=== PATIENT | female | born 1990 | race Caucasian/White ===

== ENCOUNTER 2024-06-29 10:36 | Emergency (ER) | payer BC, SELFPAY ==
[2024-06-29 10:38] VITALS: BP 135/80
--- NOTE | 2024-06-29 12:01 | ED.GENMED ---
History of Present Illness
<Rebecca Mcconnell PA-C - Last Filed: 06/29/24 14:58>
General
Chief Complaint: Abdominal Symptoms
Source: patient
Time Seen by Provider: 06/29/24 11:52
History of Present Illness
History of Present Illness:
34yoF with a history of cyclic vomiting syndrome, anxiety, and depression presenting for evaluation of vomiting. Symptoms began this morning. She has vomited about 5x thus far and has been unable to tolerate PO intake. She is under a lot of stress
and starts a new job next week. She believes the stress is what is causing her symptoms. She also reports diarrhea which is typical for her cyclic vomiting flares. She denies any fevers, chest pain, shortness of breath, abdominal pain. No sick
contacts, recent travel, or suspicious food intake. She typically improves with IV antiemetics and Ativan. She smokes marijuana about 2x weekly.
Past History
<Rebecca Mcconnell PA-C - Last Filed: 06/29/24 14:58>
Past History
ED Past Medical History: Asthma, Psychiatric (Anxiety, Depression. ) and Other (Cyclic vomiting syndrome, Kidney stones, Colitis, UTI, Substance abuse)
ED Past Surgical History: Appendectomy
Patient has exhibited threatening behavior?: No
PSI?: No
Social History
Tobacco: Non-smoker
Alcohol: None
Drug: Marijuana and Other
Personal: Single
Living: with family
Employment: Employed
Family History
Family History: Other (Noncontributory); Negative Sudden
Phy Exam
<Rebecca Mcconnell PA-C - Last Filed: 06/29/24 14:58>
General Physical Exam
General Presentation: well appearing and no apparent distress
General age: appears stated age
General Skin: warm and dry
General Habitus: normal
General Mental: alert
Cardiovascular Exam
Cardiovascular Exam: regular rate/rhythm, no edema and no murmur
Pulmonary Exam
Pulmonary Exam: lungs clear, no respiratory distress, no crackles and no wheezing
Gastrointestinal Exam
Gastrointestinal Exam: non tender, soft and non distended
Skin Exam
Skin Exam: normal color and warm/dry
Psychiatric Exam
Psychiatric Exam: anxious
Course
<Rebecca Mcconnell PA-C - Last Filed: 06/29/24 14:58>
Orders/Labs/Results
Orders:
Orders
06/29/24 12:01
0.9% Sodium Chloride 1000 ml [Nss] 1,000 ml IV BOLUS
Lorazepam [Ativan] 1 mg IV NOW STA
Metoclopramide [Reglan] 10 mg IV NOW STA
06/29/24 12:02
Test Result ONCE
06/29/24 12:16
Complete Blood Count/With Diff Urgent
Comprehensive Metabolic Panel Urgent
HCG, Serum Qualitative Screen Urgent
Lipase Urgent
Abnormal Lab Results
06/29/24
12:16
WBC 14.9 H 10^3/uL
(4.8-10.8)
MPV 10.5 H fL
(7.4-10.4)
Abs Immat Gran (auto) 0.2 H 10^3/uL
(0-0.05)
Absolute Neuts (auto) 12.6 H 10^3/uL
(1.4-6.5)
Immature Gran % 1.0 H %
(0-0.5)
Neutrophils % 85.1 H %
(42.2-75.2)
Lymphocytes % 10.8 L %
(20.5-51.1)
Glucose 118 H mg/dl
(70-99)
06/29/24 12:16
06/29/24 12:16
Vital Signs
Initial and Last Documented VS:
Initial Vital Signs
Temp Pulse Resp BP Pulse Ox
98.3 F 115 16 135/80 97
06/29/24 10:38 06/29/24 10:38 06/29/24 10:38 06/29/24 10:38 06/29/24 10:38
Last Documented Vital Signs
Temp Pulse Resp BP Pulse Ox
98.3 F 115 16 135/80 97
06/29/24 10:38 06/29/24 10:38 06/29/24 10:38 06/29/24 10:38 06/29/24 10:38
<Melba Miller MD - Last Filed: 06/29/24 13:01>
Orders/Labs/Results
Orders:
Orders
06/29/24 12:01
0.9% Sodium Chloride 1000 ml [Nss] 1,000 ml IV BOLUS
Lorazepam [Ativan] 1 mg IV NOW STA
Metoclopramide [Reglan] 10 mg IV NOW STA
06/29/24 12:02
Test Result ONCE
06/29/24 12:16
Complete Blood Count/With Diff Urgent
Comprehensive Metabolic Panel Urgent
HCG, Serum Qualitative Screen Urgent
Lipase Urgent
Abnormal Lab Results
06/29/24
12:16
WBC 14.9 H 10^3/uL
(4.8-10.8)
MPV 10.5 H fL
(7.4-10.4)
Abs Immat Gran (auto) 0.2 H 10^3/uL
(0-0.05)
Absolute Neuts (auto) 12.6 H 10^3/uL
(1.4-6.5)
Immature Gran % 1.0 H %
(0-0.5)
Neutrophils % 85.1 H %
(42.2-75.2)
Lymphocytes % 10.8 L %
(20.5-51.1)
Glucose 118 H mg/dl
(70-99)
06/29/24 12:16
06/29/24 12:16
Vital Signs
Initial and Last Documented VS:
Initial Vital Signs
Temp Pulse Resp BP Pulse Ox
98.3 F 115 16 135/80 97
06/29/24 10:38 06/29/24 10:38 06/29/24 10:38 06/29/24 10:38 06/29/24 10:38
Last Documented Vital Signs
Temp Pulse Resp BP Pulse Ox
98.3 F 115 16 135/80 97
06/29/24 10:38 06/29/24 10:38 06/29/24 10:38 06/29/24 10:38 06/29/24 10:38
<Rebecca Mcconnell PA-C - Last Filed: 06/29/24 14:58>
MDM/Problems Addressed
Differential Diagnosis Includes:
34yoF here with vomiting that began this morning. Hx of cyclic vomiting syndrome and symptoms are identical to prior episodes. No abdominal pain. HR 115, remainder of vitals stable. She is well appearing in no distress. Abdominal exam is benign.
Differential diagnosis includes but is not limited to: cyclic vomiting flare, gastroenteritis, dehydration, electrolyte abnormality
Initial ED plan: Check abdominal labs and HCG. Defer abdominal imaging given benign exam. IV Reglan, Ativan, and fluid bolus for symptoms.
<Rebecca Mcconnell PA-C - Last Filed: 06/29/24 14:58>
*Critical Care Note
Total Time (30-74mins, 75-104mins- exclusive of procedures): Not Applicable
<Rebecca Mcconnell PA-C - Last Filed: 06/29/24 14:58>
Update Note
Update Note:
Labs reveal a leukocytosis with a WBC of 14.9 which may be reactive 2/2 vomiting. This also appears stable from prior labs. Electrolytes and renal function normal. HCG negative. Patient feeling significantly improved on reassessment and was able to
tolerate PO challenge. She is requesting discharge. Script provided for Reglan and supportive care discussed. Advised close f/u with PCP and ED return precautions discussed. She was discharged in stable condition.
ED Attending Note
<Rebecca Mcconnell PA-C - Last Filed: 06/29/24 14:58>
-
Portions of this chart may have been created with voice recognition software.� Occasional wrong word or��sound alike� substitutions may have occurred due to the inherent limitations of voice recognition software.
<Melba Miller MD - Last Filed: 06/29/24 13:01>
ED Attending Note
Patient seen and examined by attending physician: Yes
I performed the substantive portion of visit, reviewed & personally made and approve the management plan that is documented in note by myself or ROSA.: Yes
ED Attending Note:
34 yr old wtih high stress this week, states this is cause of her repeated vomiting this am, no abd pain, mm dry, abd soft/nt.
Discharge Plan
Departure
Patient Disposition: Home (Routine Discharge)
Date of Disposition: 06/29/24
Time of Disposition: 14:24
Patient with high blood pressure during this ER visit?: No
Discharge Problem:
Nausea and vomiting
Instructions: Acute Nausea and Vomiting
Prescriptions:
New
metoclopramide HCl 5 mg tablet
5 mg PO Q6H PRN (Reason: nausea and vomiting) Qty: 20 0RF
No Action
lamotrigine 200 mg tablet
600 mg PO HS
quetiapine 200 mg tablet
800 mg PO HS
norgestimate-ethinyl estradiol 0.18/0.215/0.25 mg-35 mcg (28) tablet
1 tab PO DAILY
diphenhydramine HCl [Benadryl] 25 mg Capsule
25 mg PO HS PRN (Reason: sleep)
bismuth subsalicylate [Pepto-Bismol] 262 mg/15 mL Suspension
524 mg PO Q4HPRN PRN (Reason: stomach issuses)
lorazepam 1 mg tablet
1 mg PO HSPRN PRN (Reason: sleep/anxiety)
prochlorperazine maleate [Compazine] 10 mg tablet
10 mg PO Q8H PRN (Reason: nausea and vomiting) Qty: 10 0RF
Referrals:
Susana Castro MD [Family Provider] -
Activity Restrictions/Additional Instructions:
Take Reglan as needed for nausea. Drink plenty of fluids and eat a bland diet (rice, applesauce, toast).
Please follow-up with your family doctor. Return to the ER with any new or worsening symptoms.
Interventions
Interventions:
*Risk Screen - Suicide Last Done: 06/29/24 10:41
*General Assessment Last Done: 06/29/24 10:41
*Neglect/Abuse Screening Last Done: 06/29/24 10:41
ED- Fall Risk Assessment Last Done: 06/29/24 11:02
*ED COVID-19 Vaccine History Last Done: 06/29/24 11:02
KW-Ubatqm-Mqcagsibzt Assessment Last Done: 06/29/24 11:02
Discharge Date and Time
Print Language: LATVIAN
[2024-06-29 12:14] VITALS: BMI 34.6
[2024-06-29] MEDS: NSS 1000 IV (12:23)
[2024-06-29] MEDS: REGLAN 10 MG IV (12:23)
[2024-06-29] MEDS: ATIVAN 1 MG IV (12:24)
[2024-06-29 12:39] LABS: % Basophils 0.4 % (0-2); % Eosinophils 0.1 % (0-6); % Lymphocytes 10.8 % (20.5-51.1); % Monocytes 2.6 % (1.7-9.3); % Neutrophils 85.1 % (42.2-75.2); Absolute Basophils 0.1 10^3/uL (0-0.2); Absolute Immature Granulocytes 0.2 10^3/uL (0-0.05); Absolute Lymphocytes 1.6 10^3/uL (1.2-3.4); Absolute Monocytes 0.4 10^3/uL (0.1-0.6); Absolute Neutrophils 12.6 10^3/uL (1.4-6.5); Hemoglobin 13.3 g/dL (12.0-16.0); Mean Corpuscular Hgb 28.5 pg (27.0-31.0); Mean Corpuscular Volume 81.4 fL (81.0-99.0); Mean Platelet Volume 10.5 fL (7.4-10.4); Nucleated Red Blood Cells % 0 %; Platelet Count 295 10^3/uL (130-400); Red Blood Cell Count 4.67 10^6/uL (4.20-5.40); Red Cell Dist. Width 13.2 % (11.5-14.5); White Blood Cell Count 14.9 10^3/uL (4.8-10.8)
[2024-06-29 12:52] LABS: ALT (SGPT) 20 U/L (0-35); AST (SGOT) 21 U/L (14-36); Albumin 4.8 g/dl (3.5-5.0); Alkaline Phosphatase 120 U/L (38-126); Blood Urea Nitrogen 12 mg/dl (7-17); Calcium 10.1 mg/dl (8.4-10.2); Carbon Dioxide 23 mmol/L (22-30); Chloride 104 mmol/L (98-107); Estimated Creatinine Clearance > 125 ml/min; Glucose 118 mg/dl (70-99); Lipase 65 U/L (23-300); Potassium 4.2 mmol/L (3.5-5.1); Sodium 139 mmol/L (135-145); Total Bilirubin 0.3 mg/dl (0.2-1.3); Total Protein 7.3 g/dl (6.3-8.2); eGFR > 60.00
[2024-06-29 13:05] LABS: HCG, Serum Qualitative Screen Negative
[2024-06-29 14:59] VITALS: BP 128/86
== END 2024-06-29 15:00 | disposition home or self-care (01) ==
LOC: EMR 10:36
PROVIDERS: Physician Assistant; EMERGENCY PHYSICIAN Emergency Medicine; FAMILY PHYSICIAN Family Medicine
DX: R11.2 Nausea with vomiting, unspecified (principal); F41.8 Other specified anxiety disorders; J45.909 Unspecified asthma, uncomplicated; Z87.440 Personal history of urinary (tract) infections; Z87.442 Personal history of urinary calculi; Z90.49 Acquired absence of other specified parts of digestive tract
CPT/HCPCS: 99283; 96374; 96375; 96361; 80053; 83690; 84703; 85025

== ENCOUNTER 2024-09-04 19:16 | Emergency (ER) | payer BC, SELFPAY ==
[2024-09-04 19:18] VITALS: BP 131/89
[2024-09-04 20:02] LABS: HCG, Serum Qualitative Screen Negative
[2024-09-04 20:06] LABS: ALT (SGPT) 23 U/L (0-35); AST (SGOT) 23 U/L (14-36); Albumin 4.9 g/dl (3.5-5.0); Alkaline Phosphatase 118 U/L (38-126); Blood Urea Nitrogen 14 mg/dl (7-17); Calcium 9.9 mg/dl (8.4-10.2); Carbon Dioxide 20 mmol/L (22-30); Chloride 103 mmol/L (98-107); Glucose 112 mg/dl (70-99); Lipase 97 U/L (23-300); Potassium 4.2 mmol/L (3.5-5.1); Sodium 140 mmol/L (135-145); Total Bilirubin 0.6 mg/dl (0.2-1.3); Total Protein 7.6 g/dl (6.3-8.2); eGFR > 60.00
[2024-09-04 20:12] LABS: % Basophils 0.5 % (0-2); % Eosinophils 1.4 % (0-6); % Immature Granulocytes 1.1 % (0-0.5); % Lymphocytes 36.8 % (20.5-51.1); % Monocytes 5.8 % (1.7-9.3); % Neutrophils 54.4 % (42.2-75.2); Absolute Basophils 0.1 10^3/uL (0-0.2); Absolute Eosinophils 0.2 10^3/uL (0-0.7); Absolute Immature Granulocytes 0.1 10^3/uL (0-0.05); Absolute Lymphocytes 4.1 10^3/uL (1.2-3.4); Absolute Monocytes 0.6 10^3/uL (0.1-0.6); Hematocrit 36.8 % (37.0-47.0); Mean Corp Hgb Conc. 35.3 g/dL (33.0-37.0); Mean Corpuscular Hgb 28.6 pg (27.0-31.0); Mean Corpuscular Volume 80.9 fL (81.0-99.0); Mean Platelet Volume 10.3 fL (7.4-10.4); Nucleated Red Blood Cells % 0 %; Platelet Count 307 10^3/uL (130-400); Red Blood Cell Count 4.55 10^6/uL (4.20-5.40); Red Cell Dist. Width 13.2 % (11.5-14.5)
[2024-09-04 20:43] VITALS: BP 138/87
--- NOTE | 2024-09-04 20:49 | ED.GENMED ---
History of Present Illness
General
Chief Complaint: Abdominal Symptoms
Source: patient
Time Seen by Provider: 09/04/24 20:39
History of Present Illness
History of Present Illness:
34-year-old female presents differential complaint of nausea, vomiting and diarrhea. Symptoms began over the past 24 hours. She has had about 5 episodes of vomiting and even more diarrhea. Stool is watery no blood or mucus. Patient eats out
frequently so hard to identify if there is a particular source of infection. She denies fever. Patient is a history of cyclic vomiting syndrome but this feels a bit different. Typically she does not have diarrhea. She denies any recent travel.
She denies any fever.
Past History
Past History
ED Past Medical History: Asthma, Psychiatric (Anxiety, Depression. ) and Other (Cyclic vomiting syndrome, Kidney stones, Colitis, UTI, Substance abuse)
ED Past Surgical History: Appendectomy
Patient has exhibited threatening behavior?: No
PSI?: No
Social History
Tobacco: Non-smoker
Alcohol: None
Drug: Marijuana and Other
Personal: Single
Living: with family
Employment: Employed
Family History
Family History: Other (Noncontributory); Negative Sudden
Phy Exam
Physical Exam
Physical Exam:
General: Awake, Alert, Oriented X3. No acute distress.
Vitals: unremarkable
Head: Atraumatic
Eyes: Pupils equal, EOMI
Throat: Airway intact, no exudates, somewhat dry mucosa
Neck: Trachea midline
Lungs: Clear and equal b/l
Heart: Regular rate, no murmurs
Abd: Soft, Nontender, No pulsatile mass
Neuro: Nonfocal
Skin: Warm, dry, no rash
Extremities: pulses equal b/l, no edema
Course
Orders/Labs/Results
Orders:
Orders
09/04/24 19:22
Test Result ONCE
09/04/24 19:31
Complete Blood Count/With Diff Urgent
Comprehensive Metabolic Panel Urgent
HCG, Serum Qualitative Screen Urgent
Lipase Urgent
09/04/24 20:47
0.9% Sodium Chloride 1000 ml [Nss] 1,000 ml IV BOLUS
Lorazepam [Ativan] 1 mg IV NOW STA
Metoclopramide [Reglan] 10 mg IV NOW STA
09/04/24 20:51
Electrocardiogram (*1) Urgent
Reason for Study: QTc Monitoring
EKG- Treatment ONCE
09/04/24 22:39
Ondansetron Injectable [Zofran] 4 mg .ROUTE .STK-MED ONE
09/04/24 22:41
Ondansetron Injectable [Zofran] 4 mg IV NOW STA
Abnormal Lab Results
09/04/24
19:31
WBC 11.0 H 10^3/uL
(4.8-10.8)
Hct 36.8 L %
(37.0-47.0)
MCV 80.9 L fL
(81.0-99.0)
Abs Immat Gran (auto) 0.1 H 10^3/uL
(0-0.05)
Absolute Lymphs (auto) 4.1 H 10^3/uL
(1.2-3.4)
Immature Gran % 1.1 H %
(0-0.5)
Carbon Dioxide 20 L mmol/L
(22-30)
Glucose 112 H mg/dl
(70-99)
09/04/24 19:31
09/04/24 19:31
Vital Signs
Initial and Last Documented VS:
Initial Vital Signs
Temp Pulse Resp BP Pulse Ox
98.4 F 105 20 131/89 95
09/04/24 19:18 09/04/24 19:18 09/04/24 19:18 09/04/24 19:18 09/04/24 19:18
Last Documented Vital Signs
Temp Pulse Resp BP Pulse Ox
97.8 F 86 16 118/82 98
09/04/24 21:37 09/04/24 21:37 09/04/24 21:37 09/04/24 22:44 09/04/24 21:37
MDM/Problems Addressed
Differential Diagnosis Includes:
Gastritis, exacerbation of cyclic vomiting syndrome, obstruction
MDM/Problems Addressed:
Patient presents with nausea vomiting positive diarrhea. Exam not consistent with bowel obstruction or other acute surgical issue. Labs are reassuring. Patient treated with IV antiemetics and a dose of IV lorazepam which has helped her in the
past. Ultimately the patient had improvement of her symptoms. She no longer nauseous or vomiting. She continues to have some diarrhea. Patient stable for discharge home.
*Pulse Oximetry
Patient hypoxic: no
*Critical Care Note
Total Time (30-74mins, 75-104mins- exclusive of procedures): Not Applicable
ED Attending Note
-
Portions of this chart may have been created with voice recognition software.� Occasional wrong word or��sound alike� substitutions may have occurred due to the inherent limitations of voice recognition software.
Discharge Plan
Departure
Patient Disposition: Home (Routine Discharge)
Date of Disposition: 09/04/24
Time of Disposition: 23:28
Patient with high blood pressure during this ER visit?: No
Condition: Good
Discharge Problem:
Acute nausea with nonbilious vomiting, Acute diarrhea
Instructions: Diarrhea in teens and adults, Nausea and Vomiting, Adult (DC)
Prescriptions:
New
ondansetron 4 mg tablet,disintegrating
4 mg PO Q8H PRN (Reason: nausea and vomiting) 4 Days Qty: 12 0RF
No Action
lamotrigine 200 mg tablet
600 mg PO HS
quetiapine 200 mg tablet
800 mg PO HS
norgestimate-ethinyl estradiol 0.18/0.215/0.25 mg-35 mcg (28) tablet
1 tab PO DAILY
diphenhydramine HCl [Benadryl] 25 mg Capsule
25 mg PO HS PRN (Reason: sleep)
bismuth subsalicylate [Pepto-Bismol] 262 mg/15 mL Suspension
524 mg PO Q4HPRN PRN (Reason: stomach issuses)
lorazepam 1 mg tablet
1 mg PO HSPRN PRN (Reason: sleep/anxiety)
prochlorperazine maleate [Compazine] 10 mg tablet
10 mg PO Q8H PRN (Reason: nausea and vomiting) Qty: 10 0RF
metoclopramide HCl 5 mg tablet
5 mg PO Q6H PRN (Reason: nausea and vomiting) Qty: 20 0RF
Referrals:
Susana Castro MD [Family Provider] -
Interventions
Interventions:
*Risk Screen - Suicide Last Done: 09/04/24 20:58
*General Assessment Last Done: 09/04/24 20:58
*Neglect/Abuse Screening Last Done: 09/04/24 20:58
ED- Fall Risk Assessment Last Done: 09/04/24 21:00
*ED COVID-19 Vaccine History Last Done: 09/04/24 20:58
*Nursing Disposition Last Done: 09/04/24 23:36
ZU-Dqmhpr-Ljzittvbal Assessment Last Done: 09/04/24 20:59
Discharge Date and Time
Discharge Date/Time: 09/05/24 00:06
Print Language: YAKUT
[2024-09-04 20:58] VITALS: BMI 32.4
[2024-09-04 21:34] VITALS: BP 139/90
[2024-09-04] MEDS: NSS 1000 IV (21:34)
[2024-09-04] MEDS: REGLAN 10 MG IV (21:35)
[2024-09-04] MEDS: ATIVAN 1 MG IV (21:35)
[2024-09-04 21:37] VITALS: BP 139/90
[2024-09-04] MEDS: ZOFRAN 4 MG IV (22:41)
[2024-09-04 22:44] VITALS: BP 118/82
== END 2024-09-05 00:06 | disposition home or self-care (01) ==
LOC: EMR 19:16
PROVIDERS: Emergency Medicine; EMERGENCY PHYSICIAN Emergency Medicine; FAMILY PHYSICIAN Family Medicine
DX: R11.2 Nausea with vomiting, unspecified (principal); R19.7 Diarrhea, unspecified; J45.909 Unspecified asthma, uncomplicated; Z90.49 Acquired absence of other specified parts of digestive tract
CPT/HCPCS: 99284; 96374; 96375; 96361; 80053; 83690; 84703; 85025; 93005

== ENCOUNTER → 2024-09-09 13:18 | Outpatient (REF) | payer BC, SELFPAY | LOC: HWRAD 13:18 | PROVIDERS: ATTENDING PHYSICIAN Nurse Practitioner Family | DX: R10.30 Lower abdominal pain, unspecified (principal) | CPT/HCPCS: 74177; Q9967 ==

== ENCOUNTER → 2024-09-20 09:34 | Outpatient (REF) | payer BC, SELFPAY | LOC: WDC 09:34 | PROVIDERS: ATTENDING PHYSICIAN Nurse Practitioner Family | DX: N63.20 Unspecified lump in the left breast, unspecified quadrant (principal); R92.8 Other abnormal and inconclusive findings on diagnostic imaging of breast | CPT/HCPCS: 76642; 77062; 77066 ==

== ENCOUNTER 2024-11-11 22:11 | Emergency (ER) | payer BC, SELFPAY ==
[2024-11-11 22:13] VITALS: BP 187/91
[2024-11-11 22:28] LABS: % Basophils 0.4 % (0-2); % Eosinophils 0.4 % (0-6); % Immature Granulocytes 0.8 % (0-0.5); % Lymphocytes 6.9 % (20.5-51.1); % Monocytes 6.7 % (1.7-9.3); % Neutrophils 84.8 % (42.2-75.2); Absolute Basophils 0.1 10^3/uL (0-0.2); Absolute Eosinophils 0.1 10^3/uL (0-0.7); Absolute Immature Granulocytes 0.1 10^3/uL (0-0.05); Absolute Monocytes 0.9 10^3/uL (0.1-0.6); Absolute Neutrophils 11.8 10^3/uL (1.4-6.5); Hematocrit 38.3 % (37.0-47.0); Hemoglobin 13.6 g/dL (12.0-16.0); Mean Corp Hgb Conc. 35.5 g/dL (33.0-37.0); Mean Corpuscular Hgb 29.8 pg (27.0-31.0); Mean Corpuscular Volume 83.8 fL (81.0-99.0); Mean Platelet Volume 10.4 fL (7.4-10.4); Nucleated Red Blood Cells % 0 %; Platelet Count 264 10^3/uL (130-400); Red Blood Cell Count 4.57 10^6/uL (4.20-5.40); Red Cell Dist. Width 13.2 % (11.5-14.5); White Blood Cell Count 13.9 10^3/uL (4.8-10.8)
[2024-11-11 22:46] LABS: ALT (SGPT) 18 U/L (0-35); AST (SGOT) 21 U/L (14-36); Albumin 5.2 g/dl (3.5-5.0); Alkaline Phosphatase 113 U/L (38-126); Blood Urea Nitrogen 10 mg/dl (7-17); Calcium 9.8 mg/dl (8.4-10.2); Carbon Dioxide 15 mmol/L (22-30); Chloride 104 mmol/L (98-107); Glucose 139 mg/dl (70-99); Sodium 138 mmol/L (135-145); Total Bilirubin 0.5 mg/dl (0.2-1.3); eGFR > 60.00
[2024-11-11 22:47] LABS: Lipase 68 U/L (23-300)
== END 2024-11-12 00:51 ==
LOC: EMR 22:11
PROVIDERS: Student in an Organized Health Care Education/Training Program; EMERGENCY PHYSICIAN Emergency Medicine
DX: R11.2 Nausea with vomiting, unspecified (principal); Z53.21 Procedure and treatment not carried out due to patient leaving prior to being seen by health care provider
CPT/HCPCS: 80053; 83690; 85025

== ENCOUNTER 2025-03-15 13:42 | Emergency (ER) | payer BC, SELFPAY ==
--- NOTE | 2025-03-15 15:22 | ED.GENMED ---
History of Present Illness
General
Chief Complaint: Abdominal Symptoms
Time Seen by Provider: 03/15/25 14:40
History of Present Illness
History of Present Illness:
34-year-old female with history of anxiety and cyclic vomiting presents to the emergency department for evaluation of nausea and vomiting beginning today. She states it felt like a typical anxiety attack for her, did take lorazepam prior to come to
the emergency department and on my evaluation states she feels better. She currently denies any nausea or vomiting. She has no abdominal pain or fevers. States this feels distinctly different than her past bouts of cyclic vomiting
Past History
Past History
ED Past Medical History: Asthma, Psychiatric (Anxiety, Depression. ) and Other (Cyclic vomiting syndrome, Kidney stones, Colitis, UTI, Substance abuse)
ED Past Surgical History: Appendectomy
Patient has exhibited threatening behavior?: No
PSI?: No
Social History
Tobacco: Non-smoker
Alcohol: None
Drug: Marijuana and Other
Personal: Single
Living: with family
Employment: Employed
Family History
Family History: Other (Noncontributory); Negative Sudden
Review of Systems
Review of Systems
Allergies reviewed?: Yes
All Other Systems: ROS reviewed and negative except as documented in HPI and ROS
Phy Exam
Physical Exam
Physical Exam:
GEN: Well appearing, NAD, WDWN
HEENT: Oral mucosa moist, no scleral icterus
Cardiac: Regular rate
Lung: No respiratory distress, no tachypnea
MSK: No gross deformity or injuries
Skin: Good color, no pallor or jaundice, no rashes
Neuro: AO x3, moves all extremities freely
Psych: Calm, cooperative
Course
Orders/Labs/Results
Orders:
Orders
03/15/25 15:08
Ondansetron Orally Disint [Zofran Odt (Orally Disintegrating)] 4 mg PO NOW STA
Vital Signs
Initial and Last Documented VS:
Initial Vital Signs
Temp Pulse Resp Pulse Ox
98.2 F 119 16 98
03/15/25 13:45 03/15/25 13:45 03/15/25 13:45 03/15/25 13:45
Last Documented Vital Signs
Temp Pulse Resp BP Pulse Ox
98.2 F 88 20 140/72 98
03/15/25 13:45 03/15/25 16:04 03/15/25 16:04 03/15/25 16:04 03/15/25 16:04
MDM/Problems Addressed
MDM/Problems Addressed:
Patient feeling well on my evaluation, denies any abdominal pain. Although she is tachycardic on initial arrival her heart rate has improved as of the time of my evaluation. She was given ODT Zofran and was able to drink without any further
symptoms. She is requesting to be discharged which I feel is medically reasonable at this time. No indication for labs or imaging
*Critical Care Note
Total Time (30-74mins, 75-104mins- exclusive of procedures): Not Applicable
ED Attending Note
-
Portions of this chart may have been created with voice recognition software.� Occasional wrong word or��sound alike� substitutions may have occurred due to the inherent limitations of voice recognition software.
Discharge Plan
Departure
Patient Disposition: Home (Routine Discharge)
Date of Disposition: 03/15/25
Time of Disposition: 15:56
Patient with high blood pressure during this ER visit?: No
Discharge Problem:
Nausea & vomiting
Instructions: Nausea and Vomiting, Adult (DC)
Prescriptions:
New
ondansetron 4 mg tablet,disintegrating
4 mg PO TIDPRN PRN (Reason: nausea/vomiting) Qty: 10 0RF
No Action
lamotrigine 200 mg tablet
600 mg PO HS
quetiapine 200 mg tablet
800 mg PO HS
norgestimate-ethinyl estradiol 0.18/0.215/0.25 mg-35 mcg (28) tablet
1 tab PO DAILY
diphenhydramine HCl [Benadryl] 25 mg Capsule
25 mg PO HS PRN (Reason: sleep)
bismuth subsalicylate [Pepto-Bismol] 262 mg/15 mL Suspension
524 mg PO Q4HPRN PRN (Reason: stomach issuses)
lorazepam 1 mg tablet
1 mg PO HSPRN PRN (Reason: sleep/anxiety)
prochlorperazine maleate [Compazine] 10 mg tablet
10 mg PO Q8H PRN (Reason: nausea and vomiting) Qty: 10 0RF
metoclopramide HCl 5 mg tablet
5 mg PO Q6H PRN (Reason: nausea and vomiting) Qty: 20 0RF
ondansetron 4 mg tablet,disintegrating
4 mg PO Q8H PRN (Reason: nausea and vomiting) 4 Days Qty: 12 0RF
Referrals:
Susana Castro MD [Family Provider] -
Interventions
Interventions:
*Risk Screen - Suicide Last Done: 03/15/25 13:45
*Neglect/Abuse Screening Last Done: 03/15/25 13:45
*Nursing Disposition Last Done: 03/15/25 16:07
YL-Toegne-Grvikbpiqn Assessment Last Done: 03/15/25 14:55
Discharge Date and Time
Print Language: MONGOLIAN
[2025-03-15] MEDS: ZOFRAN ODT (ORALLY DISINTEGRATING) 4 MG PO (15:27)
[2025-03-15 16:04] VITALS: BP 140/72
== END 2025-03-15 17:41 | disposition home or self-care (01) ==
LOC: EMR 13:42
PROVIDERS: EMERGENCY PHYSICIAN Emergency Medicine; FAMILY PHYSICIAN Family Medicine
DX: R11.2 Nausea with vomiting, unspecified (principal); J45.909 Unspecified asthma, uncomplicated; Z90.49 Acquired absence of other specified parts of digestive tract
CPT/HCPCS: 99283

== ENCOUNTER 2025-07-16 17:42 | Emergency (ER) | payer BC, SELFPAY ==
[2025-07-16 17:45] VITALS: BP 129/91
[2025-07-16] MEDS: ZOFRAN ODT (ORALLY DISINTEGRATING) 4 MG PO (19:23)
[2025-07-16 21:19] VITALS: BP 142/93; BMI 31.8
[2025-07-16 22:03] LABS: Hematocrit 37.2 % (37.0-47.0); Hemoglobin 13.0 g/dL (12.0-16.0); Mean Corp Hgb Conc. 34.9 g/dL (33.0-37.0); Mean Corpuscular Volume 82.1 fL (81.0-99.0); Nucleated Red Blood Cells % 0 %; Platelet Count 270 10^3/uL (130-400); Red Cell Dist. Width 13.2 % (11.5-14.5)
--- NOTE | 2025-07-16 22:12 | ED.GENMED ---
History of Present Illness
<Trini Murguia CALCULATION CLERK - Last Filed: 07/18/25 08:10>
General
Chief Complaint: Abdominal Pain
Source: patient
Exam Limitations: none
Time Seen by Provider: 07/16/25 22:10
Nursing documentation reviewed up to this point in time: agreed with
History of Present Illness
History of Present Illness:
35-year-old female with history of cyclic vomiting with marijuana use, anxiety/depression, colitis, kidney stones, appendectomy presents for severe nausea and vomiting
She does admit that she smokes marijuana, she states she got her period today at work and that threw her into a stressful fit adding to her nausea and vomiting, mother at bedside states when she gets stressed she starts with a cyclical vomiting.
She is actively retching and vomiting. She is requesting Ativan, she cannot take Haldol, she states she can take Zofran and Reglan. She states she has a psychiatrist Dr. Simeon who she will contact tomorrow for more Ativan as she states he gives it
to her on a as needed basis.
Past History
<Trini Murguia, CALCULATION CLERK - Last Filed: 07/18/25 08:10>
Past History
ED Past Medical History: Asthma, Psychiatric (Anxiety, Depression. ) and Other (Cyclic vomiting syndrome, Kidney stones, Colitis, UTI, Substance abuse)
ED Past Surgical History: Appendectomy
Patient has exhibited threatening behavior?: No
PSI?: No
Social History
Tobacco: Non-smoker
Alcohol: None
Drug: Marijuana and Other
Personal: Single
Living: with family
Employment: Employed
Family History
Family History: Other (Noncontributory); Negative Sudden
Review of Systems
<Trini Murguia, CALCULATION CLERK - Last Filed: 07/18/25 08:10>
Review of Systems
Allergies reviewed?: Yes
All Other Systems: ROS reviewed and negative except as documented in HPI and ROS
Phy Exam
<Trini Murguia, CALCULATION CLERK - Last Filed: 07/18/25 08:10>
Physical Exam
Physical Exam:
GENERAL: Actively retching. A&Ox3.
CONSTITUTIONAL: Afebrile.
EYES: clear, conjunctivae normal
ENMT: moist mucus membranes, Pharynx nl
RESPIRATORY: Regular respirations, nonlabored, lungs clear.
CARDIOVASCULAR: Regular rate and rhythm, no murmurs, no rubs.
GI: Soft, nontender, normal BS
MUSCULOSKELETAL: Moves with ease. Well perfused.
SKIN: Warm, dry, pink
PSYCH: Anxious mood and affect. Well kept, interactive and appropriate
NEUROLOGIC: Awake, alert and oriented. No focal neurological deficits
Course
<Trini Murguia, CALCULATION CLERK - Last Filed: 07/18/25 08:10>
Orders/Labs/Results
Orders:
Orders
07/16/25 19:21
Ondansetron Orally Disint [Zofran Odt (Orally Disintegrating)] 4 mg .ROUTE .STK-MED ONE
07/16/25 19:22
Ondansetron Orally Disint [Zofran Odt (Orally Disintegrating)] 4 mg PO NOW STA
07/16/25 21:52
Complete Blood Count/With Diff Urgent
07/16/25 22:14
0.9% Sodium Chloride 1000 ml [Nss] 1,000 ml IV BOLUS
07/16/25 22:33
Comprehensive Metabolic Panel Urgent
Metoclopramide [Reglan] 10 mg IV NOW STA
07/16/25 22:37
diazePAM [Valium Injection] 5 mg IV NOW STA
07/16/25 23:50
Ondansetron Injectable [Zofran] 4 mg .ROUTE .STK-MED ONE
07/16/25 23:52
Ondansetron Injectable [Zofran] 4 mg IV NOW STA
07/17/25 00:17
Diphenhydramine [Benadryl] 50 mg IV NOW STA
Ondansetron Injectable [Zofran] 4 mg IV NOW STA
07/17/25 02:06
Capsaicin [Zostrix-Hp 0.075% Cream] See Dose Instructions TOPICAL NOW STA
Abnormal Lab Results
07/16/25 07/16/25
21:52 22:33
WBC 18.3 H 10^3/uL
(4.8-10.8)
Abs Immat Gran (auto) 0.1 H 10^3/uL
(0-0.05)
Absolute Neuts (auto) 16.3 H 10^3/uL
(1.4-6.5)
Immature Gran % 0.7 H %
(0-0.5)
Neutrophils % 89.5 H %
(42.2-75.2)
Lymphocytes % 7.7 L %
(20.5-51.1)
Chloride 113 H mmol/L
(98-107)
Carbon Dioxide 20 L mmol/L
(22-30)
Glucose 136 H mg/dl
(70-99)
07/16/25 21:52
07/16/25 22:33
Vital Signs
Initial and Last Documented VS:
Initial Vital Signs
Temp Pulse Resp BP Pulse Ox
98.1 F 65 16 129/91 100
07/16/25 17:45 07/16/25 17:45 07/16/25 17:45 07/16/25 17:45 07/16/25 17:45
Last Documented Vital Signs
Temp Pulse Resp BP Pulse Ox
98.1 F 80 16 142/93 99
07/16/25 17:45 07/17/25 02:36 07/16/25 17:45 07/16/25 21:19 07/17/25 02:36
<Jeanie Recio, DO - Last Filed: 07/17/25 02:31>
Orders/Labs/Results
Orders:
Orders
07/16/25 19:21
Ondansetron Orally Disint [Zofran Odt (Orally Disintegrating)] 4 mg .ROUTE .STK-MED ONE
07/16/25 19:22
Ondansetron Orally Disint [Zofran Odt (Orally Disintegrating)] 4 mg PO NOW STA
07/16/25 21:52
Complete Blood Count/With Diff Urgent
07/16/25 22:14
0.9% Sodium Chloride 1000 ml [Nss] 1,000 ml IV BOLUS
07/16/25 22:33
Comprehensive Metabolic Panel Urgent
Metoclopramide [Reglan] 10 mg IV NOW STA
07/16/25 22:37
diazePAM [Valium Injection] 5 mg IV NOW STA
07/16/25 23:50
Ondansetron Injectable [Zofran] 4 mg .ROUTE .STK-MED ONE
07/16/25 23:52
Ondansetron Injectable [Zofran] 4 mg IV NOW STA
07/17/25 00:17
Diphenhydramine [Benadryl] 50 mg IV NOW STA
Ondansetron Injectable [Zofran] 4 mg IV NOW STA
07/17/25 02:06
Capsaicin [Zostrix-Hp 0.075% Cream] See Dose Instructions TOPICAL NOW STA
Abnormal Lab Results
07/16/25 07/16/25
21:52 22:33
WBC 18.3 H 10^3/uL
(4.8-10.8)
Abs Immat Gran (auto) 0.1 H 10^3/uL
(0-0.05)
Absolute Neuts (auto) 16.3 H 10^3/uL
(1.4-6.5)
Immature Gran % 0.7 H %
(0-0.5)
Neutrophils % 89.5 H %
(42.2-75.2)
Lymphocytes % 7.7 L %
(20.5-51.1)
Chloride 113 H mmol/L
(98-107)
Carbon Dioxide 20 L mmol/L
(22-30)
Glucose 136 H mg/dl
(70-99)
07/16/25 21:52
07/16/25 22:33
Vital Signs
Initial and Last Documented VS:
Initial Vital Signs
Temp Pulse Resp BP Pulse Ox
98.1 F 65 16 129/91 100
07/16/25 17:45 07/16/25 17:45 07/16/25 17:45 07/16/25 17:45 07/16/25 17:45
Last Documented Vital Signs
Temp Pulse Resp BP Pulse Ox
98.1 F 80 16 142/93 99
07/16/25 17:45 07/17/25 02:36 07/16/25 17:45 07/16/25 21:19 07/17/25 02:36
<Trini Murguia CALCULATION CLERK - Last Filed: 07/18/25 08:10>
MDM/Problems Addressed
Differential Diagnosis Includes:
Cannabis hyperemesis, anxiety
MDM/Problems Addressed:
35-year-old female with history of cyclic vomiting with marijuana use, anxiety/depression, colitis, kidney stones, appendectomy presents for severe nausea and vomiting
She does admit that she smokes marijuana, she states she got her period today at work and that threw her into a stressful fit adding to her nausea and vomiting, sister at bedside states when she gets stressed she starts with a cyclical vomiting.
She is actively retching and vomiting. She is requesting Ativan, she cannot take Haldol, she states she can take Zofran and Reglan. She states she has a psychiatrist Dr. Simeon who she will contact tomorrow for more Ativan as she states he gives it
to her on a as needed basis.
Last use marijuana a wekk ago
CBC: WBC 18.3 (reactive to severe vomiting)
11:00 PM:
IV fluids infusing, IV Ativan given, IV Reglan given patient resting quietly.
Abdomen benign
12:45 PM a.m.
Patient is restless and writhing around in her bed and saying she thinks the Valium wore off. She just vomited again.
Zofran and Benadryl ordered
1:15 a.m.
Patient still moaning
Patient offered a hot shower, she says she has done this in the past and it has helped.
Case discussed with Dr. Recio who will assume care from this point.
<Trini Murguia, CALCULATION CLERK - Last Filed: 07/18/25 08:10>
*Pulse Oximetry
SaO2: 99
Oxygen Mode of Delivery: Room air
Patient hypoxic: no
*Critical Care Note
Total Time (30-74mins, 75-104mins- exclusive of procedures): Not Applicable
ED Attending Note
<Trini Murguia, CALCULATION CLERK - Last Filed: 07/18/25 08:10>
-
Portions of this chart may have been created with voice recognition software.� Occasional wrong word or��sound alike� substitutions may have occurred due to the inherent limitations of voice recognition software.
<Jeanie Recio, - Last Filed: 07/17/25 02:31>
ED Attending Note
Patient seen and examined by attending physician: Yes
I performed a history and physical exam of patient and discussed management with resident, I reviewed resident's note and agree with documented findings and plan of care.: Yes
ED Attending Note:
35-year-old woman with longstanding history of cannabis hyperemesis syndrome, previous ED visits for similar complaints of intractable vomiting. She also has history of anxiety, bipolar disorder, follows regularly with psychiatrist, Dr. Simeon.
Generally does well with IV Ativan, antiemetics. Due to national shortage of IV Ativan she has been given an IV dose of Valium, Reglan, Zofran. Had been markedly improved, resting but then retching has returned. She continues to deny abdominal
pain. She is retching but no vomitus produced.
She remains afebrile. Abdomen is soft without appreciable tenderness.
Labs reveal elevated white blood cell count, similar elevations noted previously. Chemistries are unremarkable.
Symptoms temporized with hot showers and currently feeling improved after capsaicin cream applied to abdomen.
She is currently eager to be discharged to home.
Will prescribe Zofran for as needed nausea.
Patient has been encouraged to discontinue all cannabis use and remain cannabis free, for life.
Prompt follow-up with PCP and recommend follow-up with her psychiatrist as well.
Discharge Plan
Departure
Patient Disposition: Home (Routine Discharge)
Date of Disposition: 07/17/25
Time of Disposition: 02:26
Patient with high blood pressure during this ER visit?: No
Condition: Good
Discharge Problem:
Cannabis hyperemesis syndrome concurrent with and due to cannabis dependence
Instructions: Cannabis hyperemesis syndrome
Prescriptions:
New
ondansetron 4 mg tablet,disintegrating
4 mg PO QID PRN (Reason: nausea and vomiting) Qty: 20 0RF
No Action
lamotrigine 200 mg tablet
600 mg PO HS
quetiapine 200 mg tablet
800 mg PO HS
norgestimate-ethinyl estradiol 0.18/0.215/0.25 mg-35 mcg (28) tablet
1 tab PO DAILY
diphenhydramine HCl [Benadryl] 25 mg Capsule
25 mg PO HS PRN (Reason: sleep)
bismuth subsalicylate [Pepto-Bismol] 262 mg/15 mL Suspension
524 mg PO Q4HPRN PRN (Reason: stomach issuses)
lorazepam 1 mg tablet
1 mg PO HSPRN PRN (Reason: sleep/anxiety)
prochlorperazine maleate [Compazine] 10 mg tablet
10 mg PO Q8H PRN (Reason: nausea and vomiting) Qty: 10 0RF
metoclopramide HCl 5 mg tablet
5 mg PO Q6H PRN (Reason: nausea and vomiting) Qty: 20 0RF
ondansetron 4 mg tablet,disintegrating
4 mg PO Q8H PRN (Reason: nausea and vomiting) 4 Days Qty: 12 0RF
ondansetron 4 mg tablet,disintegrating
4 mg PO TIDPRN PRN (Reason: nausea/vomiting) Qty: 10 0RF
Referrals:
Susana Castro MD [Family Provider, Family Practice] - Call in 1-3 days for appt
Activity Restrictions/Additional Instructions:
We strongly encourage you to discontinue cannabis and to remain cannabis free, for life.
Interventions
Interventions:
*Risk Screen - Suicide Last Done: 07/16/25 17:45
*General Assessment Last Done: 07/16/25 21:19
*Neglect/Abuse Screening Last Done: 07/16/25 17:45
*ED- Fall Risk Assessment Last Done: 07/16/25 17:45
*ED COVID-19 Vaccine History Last Done: 07/16/25 21:19
*Nursing Disposition Last Done: 07/17/25 02:36
PT-Hcrwzh-Nxtukymscx Assessment Last Done: 07/16/25 21:19
Discharge Date and Time
Discharge Date/Time: 07/17/25 02:46
Print Language: BARBADIAN
[2025-07-16] MEDS: NSS 1000 IV (22:28)
[2025-07-16] MEDS: REGLAN 10 MG IV (22:43)
[2025-07-16] MEDS: VALIUM INJECTION 5 MG IV (22:43)
[2025-07-16 23:03] LABS: ALT (SGPT) 19 U/L (0-35); AST (SGOT) 20 U/L (14-36); Albumin 4.7 g/dl (3.5-5.0); Alkaline Phosphatase 88 U/L (38-126); Blood Urea Nitrogen 9 mg/dl (7-17); Calcium 9.0 mg/dl (8.4-10.2); Carbon Dioxide 20 mmol/L (22-30); Chloride 113 mmol/L (98-107); Estimated Creatinine Clearance > 125 ml/min; Glucose 136 mg/dl (70-99); Potassium 4.4 mmol/L (3.5-5.1); Sodium 143 mmol/L (135-145); Total Protein 7.2 g/dl (6.3-8.2); eGFR > 60.00
[2025-07-16] MEDS: ZOFRAN 4 MG IV (23:53)
[2025-07-17] MEDS: ZOFRAN 4 MG IV (00:35)
[2025-07-17] MEDS: BENADRYL 50 MG IV (00:36)
[2025-07-17] MEDS: ZOSTRIX-HP 0.075% CREAM 1 APPLIC TOPICAL (02:19)
== END 2025-07-17 02:46 | disposition home or self-care (01) ==
LOC: EMR 17:42
PROVIDERS: EMERGENCY PHYSICIAN Emergency Medicine; FAMILY PHYSICIAN Family Medicine
DX: R11.2 Nausea with vomiting, unspecified (principal); F12.20 Cannabis dependence, uncomplicated; F31.9 Bipolar disorder, unspecified; F41.9 Anxiety disorder, unspecified; J45.909 Unspecified asthma, uncomplicated
CPT/HCPCS: 99284; 96374; 96375 ×3; 96376; 96361; 80053; 85025

== ENCOUNTER 2025-10-31 04:01 | Emergency (ER) | payer BC, SELFPAY ==
[2025-10-31 04:04] VITALS: BP 130/96
[2025-10-31 04:16] VITALS: BP 136/92
[2025-10-31] MEDS: NSS 1000 IV ×2 (04:39→06:16)
[2025-10-31] MEDS: ZOFRAN 4 MG IV (04:51)
[2025-10-31] MEDS: ATIVAN 1 MG IV ×2 (04:51→08:38)
--- NOTE | 2025-10-31 05:19 | ED.GENMED ---
History of Present Illness
<SARAH Cox Last Filed: 11/01/25 09:03>
General
Chief Complaint: Abdominal Symptoms
Source: patient
Exam Limitations: none
Time Seen by Provider: 10/31/25 04:18
Nursing documentation reviewed up to this point in time: agreed with
History of Present Illness
History of Present Illness:
see MDM
Past History
<SARAH Cox Last Filed: 11/01/25 09:03>
Past History
ED Past Medical History: Asthma, Psychiatric (Anxiety, Depression. ) and Other (Cyclic vomiting syndrome, Kidney stones, Colitis, UTI, Substance abuse)
ED Past Surgical History: Appendectomy
Patient has exhibited threatening behavior?: No
PSI?: No
Social History
Tobacco: Non-smoker
Alcohol: None
Drug: Marijuana and Other
Personal: Single
Living: with family
Employment: Employed
Family History
Family History: Other (Noncontributory); Negative Sudden
Review of Systems
<SARAH Cox Last Filed: 11/01/25 09:03>
Review of Systems
Allergies reviewed?: Yes
All Other Systems: Not applicable
Phy Exam
<SARAH Cox Last Filed: 11/01/25 09:03>
Physical Exam
Physical Exam:
GENERAL: Alert , +tearful, moaning
EYE: pupils equal and reactive
NECK: Supple
ENT: o/p clr, mmm.
CARDIAC: tachycaridc
LUNGS: Clear breath sounds bilaterally, no acute respiratory distress, no wheezes/rales/rhonchi
ABDOMEN: Soft, non significant tenderness, no r/g, no cvat, normal bowel sounds
NEUROLOGICAL: Alert and oriented, no focal neuro deficits
SKIN: Warm and dry, skin intact.
MUSCULOSKELETAL: No edema, well perfused. neg jesús's sign
PSYCH: Normal and appropriate interaction.
Course
<Yarelis Rios PA-C - Last Filed: 11/01/25 09:03>
Orders/Labs/Results
Orders:
Orders
10/31/25 04:31
Complete Blood Count/With Diff Urgent
Comprehensive Metabolic Panel Urgent
Lipase Urgent
Comment: ADD ON
Manual Differential Urgent
10/31/25 04:38
Add On- LAB Urgent
Tests Added?: lipase
Electrocardiogram (*1) Urgent
Reason for Study: QTc Monitoring
EKG- Treatment ONCE
0.9% Sodium Chloride 1000 ml [Nss] 1,000 ml IV BOLUS
10/31/25 04:47
Lorazepam [Ativan] 1 mg IV NOW STA
Ondansetron Injectable [Zofran] 4 mg IV NOW STA
10/31/25 05:57
0.9% Sodium Chloride 1000 ml [Nss] 1,000 ml IV BOLUS
Diphenhydramine [Benadryl] 25 mg IV NOW STA
Metoclopramide [Reglan] 10 mg IM NOW STA
10/31/25 08:19
Complete Blood Count/With Diff Urgent
10/31/25 08:31
Lorazepam [Ativan] 1 mg IV NOW STA
10/31/25 10:01
Basic Metabolic Panel Urgent
Abnormal Lab Results
10/31/25 10/31/25 10/31/25
04:31 08:19 10:01
WBC 23.8 H 10^3/uL 18.7 H 10^3/uL
(4.8-10.8) (4.8-10.8)
MPV 10.7 H fL
(7.4-10.4)
Abs Immat Gran (auto) 0.1 H 10^3/uL
(0-0.05)
Absolute Neuts (auto) 17.1 H 10^3/uL
(1.4-6.5)
Immature Gran % 0.6 H %
(0-0.5)
Neutrophils % 91.1 H %
(42.2-75.2)
Lymphocytes % 6.2 L %
(20.5-51.1)
Abs Neuts (Manual) 21.8 H 10^3/uL
(1.4-6.5)
Segmented Neutrophils 87 H %
(42-75)
Band Neutrophils 5 H %
(0-3)
Lymphocytes (Manual) 5 L %
(20-51)
Chloride 110 H mmol/L
(98-107)
Carbon Dioxide 14 L* mmol/L 18 L mmol/L
(22-30) (22-30)
Glucose 159 H mg/dl 123 H mg/dl
(70-99) (70-99)
Calcium 8.3 L D mg/dl
(8.4-10.2)
10/31/25 08:19
10/31/25 10:01
Vital Signs
Initial and Last Documented VS:
Initial Vital Signs
Temp Pulse Resp BP Pulse Ox
36.4 C 120 24 130/96 100
10/31/25 04:04 10/31/25 04:04 10/31/25 04:04 10/31/25 04:04 10/31/25 04:04
Last Documented Vital Signs
Temp Pulse Resp BP Pulse Ox
36.4 C 96 24 136/92 94
10/31/25 04:04 10/31/25 09:39 10/31/25 04:04 10/31/25 04:16 10/31/25 09:30
Marycruzlt;Rebecca Mcconnell PA-C - Last Filed: 10/31/25 12:48>
Orders/Labs/Results
Orders:
Orders
10/31/25 04:31
Complete Blood Count/With Diff Urgent
Comprehensive Metabolic Panel Urgent
Lipase Urgent
Comment: ADD ON
Manual Differential Urgent
10/31/25 04:38
Add On- LAB Urgent
Tests Added?: lipase
Electrocardiogram (*1) Urgent
Reason for Study: QTc Monitoring
EKG- Treatment ONCE
0.9% Sodium Chloride 1000 ml [Nss] 1,000 ml IV BOLUS
10/31/25 04:47
Lorazepam [Ativan] 1 mg IV NOW STA
Ondansetron Injectable [Zofran] 4 mg IV NOW STA
10/31/25 05:57
0.9% Sodium Chloride 1000 ml [Nss] 1,000 ml IV BOLUS
Diphenhydramine [Benadryl] 25 mg IV NOW STA
Metoclopramide [Reglan] 10 mg IM NOW STA
10/31/25 08:19
Complete Blood Count/With Diff Urgent
10/31/25 08:31
Lorazepam [Ativan] 1 mg IV NOW STA
10/31/25 10:01
Basic Metabolic Panel Urgent
Abnormal Lab Results
10/31/25 10/31/25 10/31/25
04:31 08:19 10:01
WBC 23.8 H 10^3/uL 18.7 H 10^3/uL
(4.8-10.8) (4.8-10.8)
MPV 10.7 H fL
(7.4-10.4)
Abs Immat Gran (auto) 0.1 H 10^3/uL
(0-0.05)
Absolute Neuts (auto) 17.1 H 10^3/uL
(1.4-6.5)
Immature Gran % 0.6 H %
(0-0.5)
Neutrophils % 91.1 H %
(42.2-75.2)
Lymphocytes % 6.2 L %
(20.5-51.1)
Abs Neuts (Manual) 21.8 H 10^3/uL
(1.4-6.5)
Segmented Neutrophils 87 H %
(42-75)
Band Neutrophils 5 H %
(0-3)
Lymphocytes (Manual) 5 L %
(20-51)
Chloride 110 H mmol/L
(98-107)
Carbon Dioxide 14 L* mmol/L 18 L mmol/L
(22-30) (22-30)
Glucose 159 H mg/dl 123 H mg/dl
(70-99) (70-99)
Calcium 8.3 L D mg/dl
(8.4-10.2)
10/31/25 08:19
10/31/25 10:01
Vital Signs
Initial and Last Documented VS:
Initial Vital Signs
Temp Pulse Resp BP Pulse Ox
36.4 C 120 24 130/96 100
10/31/25 04:04 10/31/25 04:04 10/31/25 04:04 10/31/25 04:04 10/31/25 04:04
Last Documented Vital Signs
Temp Pulse Resp BP Pulse Ox
36.4 C 96 24 136/92 94
10/31/25 04:04 10/31/25 09:39 10/31/25 04:04 10/31/25 04:16 10/31/25 09:30
<Yarelis iRos PA-C - Last Filed: 11/01/25 09:03>
MDM/Problems Addressed
Differential Diagnosis Includes:
see MDM
MDM/Problems Addressed:
Note:
CHIEF COMPLAINT(S)
Anxiety, diarrhea, and nausea.
HISTORY OF PRESENT ILLNESS
The patient is a 35-year-old female with a history of anxiety, presenting with symptoms of anxiety, diarrhea, and nausea since 7 PM. She reports experiencing these symptoms frequently, indicating a long-standing pattern. The patient noted a
significant amount of diarrhea but denied vomiting. She attributes her anxiety to stressors related to her mothers hospitalization and lack of professional care in place upon her mothers discharge. The patients anxiety symptoms are typically managed
with lorazepam and she self-reports taking 1.5 mg as needed, although she did not take any today due to a lack of perceived need.
no fever
The patient self-medicated with marijuana, although she has reduced her intake. She stated it is possible that her diarrhea could be stress-induced, marijuana-related, or caused by dietary factors.
she has been here many times for same
either related to anxiety or cannabis
The patient drove herself to the hospital, which is less than five minutes from her home, accompanied by her boyfriend. At the time of consultation, she requested treatment with lorazepam.
chronic leukocytosis
SOCIAL DETERMINANTS AFFECTING HEALTH
The patient mentioned that her mother, who is 87 years old, has been in the hospital since September 13. The patient expressed concern about her mothers return home due to concerns about the person her mother lives with, whom the patients family has
issues with, and the lack of professional care in place. The patient also noted financial issues in relation to obtaining medication only as required.
SOCIAL HISTORY
The patient smokes marijuana but has recently cut back significantly.
ALLERGIES
The patient has an unspecified allergy to sweet powder.
PLAN
Monitor the patient due to her anxiety and nausea. Consider providing intravenous lorazepam (Ativan) while ensuring patient safety since she drove to the hospital.
DIFFERENTIAL DIAGNOSIS
The Differential Diagnosis includes, in no particular order and is not limited to:
1. Anxiety disorder
2. Cannabinoid hyperemesis syndrome
3. Gastroenteritis
4. Irritable bowel syndrome
5. Substance withdrawal
6. Stress-related gastrointestinal symptoms
7. Food intolerances or allergies
8. Dehydration secondary to diarrhea
9. Medication side effects
10. Infectious diarrhea
35 y/o F
many ed visits for vomiting/diarrha
anxiety, cannabis
here with her typical n/v/d crampy pain, anxiety, panic
no fever
nontender abdomen
hyperventilating
dry mouth
tachycardia improves when i talk with her
ekg qtc normla
pt requesting zofran and ativan
her bicarb is 14
wbc 24
she has chronic leukocytosis but this is worse than baseline though she has had wbc this high before
willl give 2L NSS and recheck labs
ativan/zofran given
nausea returned, requeinstg reglan
HR is improved
signed out alexis pending repeat labs and reassessment
<Yarelis Rios PA-C - Last Filed: 11/01/25 09:03>
*Pulse Oximetry
SaO2: 97
Oxygen Mode of Delivery: Room air
<Rebecca Mcconnell PA-C - Last Filed: 10/31/25 12:48>
*Pulse Oximetry
Patient hypoxic: no
*Critical Care Note
Total Time (30-74mins, 75-104mins- exclusive of procedures): Not Applicable
<Rebecca Mcconnell PA-C - Last Filed: 10/31/25 12:48>
Update Note
Update Note:
I assumed care of patient pending repeat labs. Labs repeated after 2L NS bolus. White count improved to 18.7 and bicarb improved to 18. Patient reassessed multiple times. She was able to tolerate ice chips without any further vomiting. She
initially felt scared to go home due to ongoing diarrhea. She admits to having a lot of stress recently and her mother is supposed to return home today after a prolonged hospitalization. Offered admission which patient declines. Prescription for
Zofran provided and supportive care reviewed. ED return precautions discussed and she was discharged in stable condition.
ED Attending Note
<Yarelis Rios PA-C - Last Filed: 11/01/25 09:03>
-
Portions of this chart may have been created with voice recognition software.� Occasional wrong word or��sound alike� substitutions may have occurred due to the inherent limitations of voice recognition software.
Discharge Plan
Departure
Patient Disposition: Home (Routine Discharge)
Date of Disposition: 10/31/25
Time of Disposition: 10:32
Patient with high blood pressure during this ER visit?: No
Discharge Problem:
Nausea & vomiting
Instructions: Nausea and Vomiting, Adult (DC)
Prescriptions:
New
ondansetron 4 mg tablet,disintegrating
4 mg PO Q6H PRN (Reason: nausea and vomiting) Qty: 20 0RF
No Action
lamotrigine 200 mg tablet
600 mg PO HS
quetiapine 200 mg tablet
800 mg PO HS
norgestimate-ethinyl estradiol 0.18/0.215/0.25 mg-35 mcg (28) tablet
1 tab PO DAILY
lorazepam 1 mg tablet
1 mg PO HSPRN PRN (Reason: sleep/anxiety)
metoclopramide HCl 5 mg tablet
5 mg PO Q6H PRN (Reason: nausea and vomiting) Qty: 20 0RF
Referrals:
Susana Castro MD [Family Provider, Family Practice]
Activity Restrictions/Additional Instructions:
Take Zofran as needed for nausea. Drink plenty of fluids and stay hydrated. Advance slowly to a bland diet (bananas, rice, apples, toast).
Please follow-up closely with your family doctor. Return to the ER with any new or worsening symptoms or if you are unable to keep down liquids.
Interventions
Interventions:
*General Assessment Last Done: 10/31/25 09:09
*Neglect/Abuse Screening Last Done: 10/31/25 09:09
*ED COVID-19 Vaccine History Last Done: 10/31/25 09:09
*ED Influenza Vaccine History Last Done: 10/31/25 09:09
[facility] Fall Risk Assessment Tool Last Done: 10/31/25 04:37
*Risk Screen - Suicide (C-SSRS) Last Done: 10/31/25 04:04
*Nursing Disposition Last Done: 10/31/25 12:20
YG-Jyndpl-Gznxwopczm Assessment Last Done: 10/31/25 04:34
Discharge Date and Time
Discharge Date/Time: 10/31/25 12:20
Print Language: SINHALA
[2025-10-31 05:22] LABS: ALT (SGPT) 17 U/L (0-35); AST (SGOT) 24 U/L (14-36); Albumin 5.0 g/dl (3.5-5.0); Alkaline Phosphatase 111 U/L (38-126); Blood Urea Nitrogen 14 mg/dl (7-17); Calcium 9.8 mg/dl (8.4-10.2); Carbon Dioxide 14 mmol/L (22-30); Chloride 106 mmol/L (98-107); Glucose 159 mg/dl (70-99); Lipase 61 U/L (23-300); Potassium 4.8 mmol/L (3.5-5.1); Sodium 135 mmol/L (135-145); Total Protein 8.2 g/dl (6.3-8.2); eGFR > 60.00
[2025-10-31 05:55] LABS: Hematocrit 39.9 % (37.0-47.0); Hemoglobin 13.9 g/dL (12.0-16.0); Mean Corp Hgb Conc. 34.8 g/dL (33.0-37.0); Mean Corpuscular Volume 82.3 fL (81.0-99.0); Platelet Count 297 10^3/uL (130-400); Red Cell Dist. Width 13.2 % (11.5-14.5)
[2025-10-31] MEDS: BENADRYL 25 MG IV (06:11)
[2025-10-31] MEDS: REGLAN 10 MG IM (06:11)
[2025-10-31 08:37] LABS: Hematocrit 37.2 % (37.0-47.0); Hemoglobin 13.1 g/dL (12.0-16.0); Mean Corp Hgb Conc. 35.2 g/dL (33.0-37.0); Mean Corpuscular Volume 84.4 fL (81.0-99.0); Nucleated Red Blood Cells % 0 %; Platelet Count 275 10^3/uL (130-400); Red Cell Dist. Width 13.1 % (11.5-14.5)
[2025-10-31 09:07] LABS: Absolute Neutrophils -Man Diff 21.8 10^3/uL (1.4-6.5); Normal RBC Morphology Yes; Platelets Checked Yes; Total Cells Counted 100
[2025-10-31 10:24] LABS: Blood Urea Nitrogen 10 mg/dl (7-17); Calcium 8.3 mg/dl (8.4-10.2); Carbon Dioxide 18 mmol/L (22-30); Chloride 110 mmol/L (98-107); Glucose 123 mg/dl (70-99); Potassium 4.1 mmol/L (3.5-5.1); Sodium 135 mmol/L (135-145); eGFR > 60.00
== END 2025-10-31 12:20 | disposition home or self-care (01) ==
LOC: EMR 04:01
PROVIDERS: Physician Assistant; EMERGENCY PHYSICIAN Student in an Organized Health Care Education/Training Program; FAMILY PHYSICIAN Family Medicine
DX: R11.2 Nausea with vomiting, unspecified (principal); J45.909 Unspecified asthma, uncomplicated; F41.8 Other specified anxiety disorders; R11.15 Cyclical vomiting syndrome unrelated to migraine; D72.829 Elevated white blood cell count, unspecified; Z59.869 Financial insecurity, unspecified; Z87.440 Personal history of urinary (tract) infections; Z87.442 Personal history of urinary calculi; Z90.49 Acquired absence of other specified parts of digestive tract
CPT/HCPCS: 99283; 96374; 96375; 96376; 96372; 80048; 80053; 83690; 85025; 93005